=== PATIENT | female | born 1955 | race Caucasian/White ===

== ENCOUNTER → 2016-11-12 | Outpatient (CLI) | payer OTHER | LOC: BMCIMAGING 11:06 | DX: Z12.31 Encounter for screening mammogram for malignant neoplasm of breast (principal); R06.2 Wheezing | CPT/HCPCS: G0202 ==

== ENCOUNTER → 2018-02-02 | Outpatient (CLI) | payer OTHER | LOC: BMCIMAGING 13:53 | PROVIDERS: ATTEND Internal Medicine | DX: Z12.31 Encounter for screening mammogram for malignant neoplasm of breast (principal); Z80.3 Family history of malignant neoplasm of breast; Z85.72 Personal history of non-Hodgkin lymphomas ==

== ENCOUNTER → 2018-05-11 | Outpatient (CLI) | payer OTHER | LOC: FIMAGING 14:25 | PROVIDERS: ATTEND Internal Medicine | DX: Z13.6 Encounter for screening for cardiovascular disorders (principal); Z82.49 Family history of ischemic heart disease and other diseases of the circulatory system ==